=== PATIENT | female | born 1990 | race Caucasian/White ===

== ENCOUNTER 2019-09-27 00:43 | Emergency (ER) | payer OTHER ==
[~2019-09-27] VITALS: Ht 165.1 cm; Wt 52.2 kg
[2019-09-27 00:47] VITALS: BP 153/88
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
--- NOTE | 2019-09-27 01:40 | NUR ---
PATIENT RELEASED BACK TO [facility]. PATIENT AMBULATORY WITH STEADY GAIT. VSS.
[2019-09-27 01:41] VITALS: BP 153/88
== END 2019-09-27 01:40 ==
LOC: MED 00:43
DX: Z02.89 Encounter for other administrative examinations (principal); Z91.013 Allergy to seafood
CPT/HCPCS: 99283